=== PATIENT | male | born 1955 ===

== ENCOUNTER 2017-04-12 14:49 | Emergency (ER) | payer MEDICAID ==
[2017-04-12 14:49] VITALS: BMI 32.1
--- NOTE | 2017-04-12 15:04 | C.PDOC ---
History Of Present Illness 61 year old male presents to the ED after being sent from Dr. Barber's office for evaluation of depression. Patient denies a history of depression, physical complaints, suicidal or homicidal ideations. Time Seen by Provider: 04/12/17 15:03 Chief Complaint (Nursing): Psychiatric Evaluation History Per: Patient History/Exam Limitations: no limitations Suicide/Self Injury Attempted (Context): None Associated Symptoms: Depression. denies: Suicidal Thoughts, Suicidal Plan Involuntary Hold By: None Recent travel outside of the [place]: No Additional History Per: Patient Past Medical History Reviewed: Historical Data, Nursing Documentation, Vital Signs Vital Signs: Last Vital Signs Temp 98.3 F 04/12/17 15:03 Pulse 72 04/12/17 17:05 Resp 18 04/12/17 17:05 BP 128/80 04/12/17 17:05 Pulse Ox 98 04/12/17 17:05 - Medical History PMH: Arthritis, Fractures (LEFT WRIST 2 YEARS AGO DUE TO A FALL) Surgical History: Denies: Endoscopy Family History: States: Unknown Family Hx Review Of Systems Constitutional: Negative for: Fever, Chills Cardiovascular: Negative for: Chest Pain, Palpitations Respiratory: Negative for: Cough, Shortness of Breath Gastrointestinal: Negative for: Nausea, Vomiting, Abdominal Pain, Diarrhea Physical Exam - Physical Exam Appears: Non-toxic, No Acute Distress Skin: Warm, Dry Head: Atraumatic Eye(s): bilateral: Normal Inspection, EOMI Oral Mucosa: Moist Neck: Supple Chest: Symmetrical, No Deformity Cardiovascular: Rhythm Regular, No Murmur Respiratory: Normal Breath Sounds, No Rhonchi, No Wheezing Gastrointestinal/Abdominal: Soft, No Tenderness, No Distention, No Guarding, No Rebound Extremity: Normal ROM, No Tenderness Neurological/Psych: Oriented x3, Other (Flat affect ) ED Course And Treatment - Laboratory Results Result Diagrams: 04/12/17 15:41 04/12/17 15:41 Lab Interpretation: Normal Progress Note: Labs and UA were ordered. Patient was evaluated by Crisis. Case discussed and patient evaluated by Crisis who discussed case with psych labor utilization superintendent and request dischatge and set up for outpatient services tomorrow Reassessment Condition: Unchanged Disposition Counseled Patient/Family Regarding: Studies Performed, Diagnosis, Need For Followup - Disposition Referrals: Brayden Barber MD [Staff Provider] - Disposition: HOME/ ROUTINE Disposition Time: 17:00 Condition: STABLE Additional Instructions: Follow up with outpatient services tomorrow Instructions: Depression (ED) Forms: [facility] (Guatemalan) - POA Present On Arrival: None - Clinical Impression Clinical Impression: Moderate major depression, single episode - Scribe Statement The provider has reviewed the documentation as recorded by the Cristianeibaura Lezama All medical record entries made by the Cristianeibaura were at my direction and personally dictated by me. I have reviewed the chart and agree that the record accurately reflects my personal performance of the history, physical exam, medical decision making, and the department course for this patient. I have also personally directed, reviewed, and agree with the discharge instructions and disposition.
[2017-04-12 15:09] VITALS: TEMP 98.3
[2017-04-12 15:45] LABS: BASO # 0.1 K/uL (0.0-0.2); BASO % 0.9 % (0.0-2.0); EOS # 0.2 K/uL (0.0-0.7); HEMATOCRIT 44.6 % (35.0-51.0); LYMPH % 32.9 % (20.0-40.0); MEAN CELL VOLUME 89.4 fL (80.0-94.0); MEAN CORPUSCULAR HEMOGLOBIN 29.7 pg (27.0-31.0); MEAN CORPUSCULAR HGB CONC 33.2 g/dL (33.0-37.0); MEAN PLATELET VOLUME 11.2 fL (7.2-11.7); MONO # 0.5 K/uL (0.0-0.8); MONO % 7.4 % (0.0-10.0); RED CELL DISTRIBUTION WIDTH 13.7 % (11.5-14.5); WHITE BLOOD COUNT 6.1 K/uL (4.8-10.8)
[2017-04-12 15:51] LABS: CHLORIDE 101 mmol/L (98-107)
[2017-04-12 15:52] LABS: POTASSIUM 3.6 mmol/L (3.6-5.2); SODIUM 138 mmol/L (132-148)
[2017-04-12 15:54] LABS: ALB/GLOB RATIO 1.3 (1.0-2.1); ALKALINE PHOSPHATASE 92 U/L (38-126); AST/SGOT 24 U/L (17-59); BILIRUBIN,TOTAL 0.7 mg/dL (0.2-1.3); CARBON DIOXIDE 25 mmol/L (22-30); GFR AFRICAN-AMERICAN > 60; TOTAL PROTEIN 6.9 g/dL (6.3-8.3)
[2017-04-12 15:55] LABS: ALCOHOL SERUM < 10 mg/dl (0-10); ALT/SGPT 31 U/L (21-72); BLOOD UREA NITROGEN 17 mg/dL (9-20); CALCIUM 9.1 mg/dl (8.6-10.4); GLUCOSE,RANDOM 116 mg/dL (75-110)
[2017-04-12 16:10] LABS: RBC URINE 1 /hpf (0-3); URINE BILIRUBIN NEGATIVE (NEGATIVE); URINE BLOOD NEGATIVE (NEGATIVE); URINE COLOR Yellow (YELLOW); URINE GLUCOSE (UA) NORMAL (Normal); URINE KETONE NEGATIVE (NEGATIVE); URINE LEUKOCYTE ESTERASE NEG Leu/uL (Negative); URINE PROTEIN NEGATIVE (NEGATIVE); URINE UROBILINOGEN NORMAL mg/dL (0.2-1.0)
[2017-04-12 17:17] VITALS: BP 128/80; PULSE 72; RESP 18; O2SAT 98
== END 2017-04-12 17:17 | disposition home or self-care (01) ==
LOC: C.ER 14:49
DX: F32.1 Major depressive disorder, single episode, moderate (principal)

== ENCOUNTER 2017-05-20 20:46 | Emergency (ER) | payer MEDICAID ==
[2017-05-20 20:46] VITALS: BMI 32.1
[2017-05-20 21:15] VITALS: BP 124/80; PULSE 74; RESP 14; TEMP 97.4; O2SAT 97
[2017-05-20] MEDS ORDERED: Lidocaine 1% Inj (20ml) ONE (21:47)
--- NOTE | 2017-05-20 22:47 | C.PDOC ---
History Of Present Illness 62 year old male presents to the ED with complaints of pain to the right hand and hip after a trip and fall prior to arrival. Patient states pavement was uneven, he tripped, and landed on right side on hand and hip, denies head injury. He denies LOC, neck pain, or other complaints at this time. Time Seen by Provider: 05/20/17 21:14 Chief Complaint (Nursing): Finger,Hand,&Wrist History Per: Patient History/Exam Limitations: no limitations Onset/Duration Of Symptoms: Hrs Current Symptoms Are (Timing): Still Present Quality: "Pain" Recent travel outside of the [place]: No Past Medical History Reviewed: Historical Data, Nursing Documentation, Vital Signs Vital Signs: Last Vital Signs Temp 97.4 F L 05/20/17 21:09 Pulse 74 05/20/17 21:09 Resp 14 05/20/17 21:09 BP 124/80 05/20/17 21:09 Pulse Ox 97 05/22/17 00:36 - Medical History PMH: Arthritis, Fractures (LEFT WRIST 2 YEARS AGO DUE TO A FALL) Surgical History: Denies: Endoscopy Family History: States: Unknown Family Hx - Social History Hx Alcohol Use: No Hx Substance Use: No - Immunization History Hx Tetanus Toxoid Vaccination: No Hx Influenza Vaccination: No Hx Pneumococcal Vaccination: No Review Of Systems Constitutional: Negative for: Fever, Chills Musculoskeletal: Positive for: Hand Pain (right ), Other (right hip pain ) Neurological: Negative for: Weakness, Numbness Physical Exam - Physical Exam Appears: Non-toxic, No Acute Distress Skin: Warm, Dry, Other (abrasions to right lateral forearm ) Head: Atraumatic, Normacephalic Eye(s): bilateral: Normal Inspection, PERRL, EOMI Neck: Normal ROM, No Midline Cervical Tenderness, No Paracervical Tenderness, Supple Chest: Symmetrical, No Deformity, No Tenderness Cardiovascular: Rhythm Regular, No Murmur Respiratory: Normal Breath Sounds, No Rales, No Rhonchi, No Wheezing Gastrointestinal/Abdominal: Soft, No Tenderness Back: No Vertebral Tenderness, No Paraspinal Tenderness Extremity: Normal ROM (of the right shoulder, right elbow, and right wrist. Left arm and lower extremities are atraumatic. ), No Pedal Edema, No Calf Tenderness, Capillary Refill (good capillary refill, less than two seconds ), Deformity (obvious deformity of right pinky PIP ), No Swelling Extremity: Left: Hips Non-Tender, Right: Bony Point Tenderness (right lateral hip, normal rom) Pulses: Left Radial: Normal, Right Radial: Normal Neurological/Psych: Oriented x3, Normal Speech, Normal Cognition, Normal Cranial Nerves, Normal Motor, Normal Sensation ED Course And Treatment O2 Sat by Pulse Oximetry: 97 (RA) - Other Rad Right Hip X-Ray X-Ray: Interpreted by Me, Viewed By Me Interpretation: Negative. Right Hand X-Ray X-Ray: Interpreted by Me, Viewed By Me Interpretation: Dislocation of right pinky PIP joint. Progress Note: Patient was given Toradol and Rigth hand and hip X-Rays were ordered. Splint was applied to right pinky. Patient feels better and was instructed to follow up with hand surgeon specialist. Procedure: Blank - Time Time Performed: 22:05 - Time Out Time Out: Side verified, Patient ID confirmed - Procedure Procedure:: reduction of right 5th finger - Consent obtained: Consent obtained: Verbal - Performed by: Performed by:: Mid-level provider - Contraindications: Contraindications:: None - Anesthetic Technique Anesthetic Technique: Local (digital block right 5th finger) - Topical: Local/Regional Anesthetic:: Lidocaine 1% - Patient Position Patient Position:: Sitting - Location Location: Right Finger:: Little - Result Result: Successful - Post-Procedure Post-procedure:: Neurovascular status nml, Other (post reductin xray reviewed) - Patient Tolerated Procedure Patient Tolerated Procedure:: Well Disposition Counseled Patient/Family Regarding: Studies Performed, Diagnosis, Need For Followup, Rx Given - Disposition Referrals: Jessica Ahn MD [Staff Provider] - Disposition: HOME/ ROUTINE Disposition Time: 22:48 Condition: STABLE Additional Instructions: Keep pinky finger splinted for nextr week; Follow up with Dr Ahn in the next week. ibufpren for pain if needed . Prescriptions: Ibuprofen [Motrin] 600 mg PO TID #30 tab Instructions: Finger Dislocation (ED) Forms: [facility] (Micronesian), General Discharge Instructions - Clinical Impression Clinical Impression: Dislocation of right little finger, Fall from other slipping, tripping, or stumbling - PA / [employer] / Resident Statement MD/DO has reviewed & agrees with the documentation as recorded. - Scribe Statement The provider has reviewed the documentation as recorded by the Scribe Krystal Teja All medical record entries made by the Ceasar were at my direction and personally dictated by me. I have reviewed the chart and agree that the record accurately reflects my personal performance of the history, physical exam, medical decision making, and the department course for this patient. I have also personally directed, reviewed, and agree with the discharge instructions and disposition.
--- NOTE | 2017-05-21 17:30 | RAD ---
HISTORY: Postreduction PROCEDURE: Right small finger radiographs. COMPARISON: made with prior radiographs the right 5th finger 05/20/2017 at 2121 hours. . TECHNIQUE: AP radiograph of the right hand, as well as spot oblique and lateral images of small finger were obtained. FINDINGS: Previously noted dorsal and ulnar dislocation of the middle phalanx right 5th finger has been reduced. A small chip fracture within the soft tissues along the palmar and radial margin of the distal aspect proximal phalanx is again noted. . Surrounding soft tissue swelling. No other abnormalities. Impression: Interval reduction previously noted dislocated middle phalanx 5th finger. Small chip fracture again noted. Note that this report was placed in PA review folder for followup
--- NOTE | 2017-05-21 17:32 | RAD ---
PROCEDURE: Right small finger radiographs. HISTORY: Rule out fracture COMPARISON: No prior study available for comparison TECHNIQUE: AP radiograph of the right hand, as well as spot oblique and lateral images of small finger were obtained. FINDINGS: RIGHT SMALL FINGER: There is dorsal and ulnar dislocation of the middle phalanx right 5th finger has been reduced. Additionally, small chip fracture within the soft tissues adjacent to to the palm are margin of the distal aspect proximal phalanx. Surrounding soft tissue swelling JOINTS: Normal. SOFT TISSUES: Normal. OTHER FINDINGS: None. IMPRESSION: There isdorsal and ulnar dislocation of the middle phalanx right 5th finger has been reduced. Additionally, small chip fracture within the soft tissues adjacent to to the palm are margin of the distal aspect proximal phalanx. Surrounding soft tissue swelling
--- NOTE | 2017-05-21 17:50 | RAD ---
PROCEDURE: Pelvis right hip dated 05/20/2017 HISTORY: R/O FX POST FALL COMPARISON: No prior study available comparison TECHNIQUE: Frontal view of the pelvis -both hips and frogleg lateral view right hip performed. FINDINGS: No evidence of acute displaced fracture nor dislocation. The osseous structures appear intact. Both femoral heads are appropriately located within the respective acetabula. Some the slight the spur formation along the superolateral margins of both its acetabular roofs. The note made of a small elliptical shaped sclerotic focus within the of proximal right femoral diaphysis likely representing bone island or osteoma. Followup interval could be performed to assess stability and exclude other pathology. Consider bone scan followup if there is a history of primary carcinoma this patient. SI joints intact. Mild degenerative changes visualized lower lumbosacral spine. IMPRESSION: No evidence of acute displaced fracture nor dislocation. Minimal degenerative arthritis as detailed above. . Probable bone island or osteoma right proximal femur however there is a history of primary carcinoma this patient, recommend followup bone scan. Note that this report was placed in PA review folder for followup.
== END 2017-05-20 22:57 | disposition home or self-care (01) ==
LOC: C.ER 20:46
DX: S63.256A Unspecified dislocation of right little finger, initial encounter (principal); W01.0XXA Fall on same level from slipping, tripping and stumbling without subsequent striking against object, initial encounter; Y92.480 Sidewalk as the place of occurrence of the external cause
CPT/HCPCS: 26770; 73140; 73502; 96372; 99285; J1885

== ENCOUNTER 2017-08-17 07:43 | Day surgery (SDC) | payer MEDICAID ==
[2017-08-17 08:39] VITALS: BMI 28.3
[2017-08-17] MEDS ORDERED: Propofol 10 mg/ml Inj (20 ML) ONE (10:19)
[2017-08-17] MEDS ORDERED: Lactated Ringer's 500 ML IV SCH (10:30)
[2017-08-17] MEDS ORDERED: Lidocaine Hydrochloride 5 ML INJ ONE (10:31)
[2017-08-17 10:52] VITALS: TEMP 98.6
[2017-08-17 11:13] VITALS: O2SAT 97
[2017-08-17 11:22] VITALS: BP 124/88; PULSE 62; RESP 16
== END 2017-08-17 13:40 | disposition home or self-care (01) ==
LOC: C.ENDO 07:43
PROVIDERS: ATTEND Internal Medicine Gastroenterology
DX: K29.70 Gastritis, unspecified, without bleeding (principal); B96.81 Helicobacter pylori [H. pylori] as the cause of diseases classified elsewhere
CPT/HCPCS: 43239; 88305; 88342; J2704; J7120

== ENCOUNTER 2019-01-10 10:38 | Outpatient (CLI) | payer MEDICAID | END 2019-01-10 10:39 | disposition home or self-care (01) | LOC: C.USIC 10:38 ==